=== PATIENT | female | born 1955 | race Caucasian/White ===

== ENCOUNTER → 2020-02-03 08:14 | Outpatient (CLI) | payer OTHER, MEDICARE, SELFPAY ==
--- NOTE | ~2020-02-03 | CT_ITS ---
EXAMINATION: CT chest wo con DATE: 02/03/2020 08:33 INDICATION: Lung nodule TECHNIQUE: Computed tomography (CT) of the chest was performed without intravenous contrast. The dose -length product (DLP) was 149.69 mGy-cm. Automated exposure control and iterative reconstruction tech nique were employed. COMPARISON: None FINDINGS: There are multiple (greater than 10) pulmonary nodules throughout the lungs. The largest me asures 4 mm in the right lower lobe. The remaining nodules measure 1 to 3 mm. There are also several groundglass nodules in the lungs without solid nodular component which measure up to 1.5 cm. There is no pleural effusion or pneumothorax. No pathologically enlarged thoracic lymph nodes are identified. The heart size is normal. There is moderate thoracic spondylosis. IMPRESSION: 1. Multiple pulmonary nodules measuring up to 4 mm. Without prior comparison, gear changer time cannot be assessed. Assuming these are stable and the patient has no risk factors for malignancy, no furthe r follow up is required. If there are risk factors for malignancy (i.e., history of smoking, asbesto s or radiation exposure), consider followup CT in 12 months. 2. Multiple subsolid nodules of the lungs measuring up to 1.5 cm which may be infectious or inflammat ory. Follow-up low-dose CT in three months is recommended. Reviewed, dictated and finalized at location B. IMPRESSION: 1. Multiple pulmonary nodules measuring up to 4 mm. Without prior comparison, c hange over time cannot be assessed. Assuming these are stable and the patient h as no risk factors for malignancy, no further follow up is required. If there are risk factors for malignancy (i.e., history of smoking, asbestos or radiatio n exposure), consider followup CT in 12 months. 2. Multiple subsolid nodules of the lungs measuring up to 1.5 cm which may be i nfectious or inflammatory. Follow-up low-dose CT in three months is recommended .
== END ==
PROVIDERS: PCP Family Medicine
DX: R91.1 Solitary pulmonary nodule (principal); R91.8 Other nonspecific abnormal finding of lung field
CPT/HCPCS: 71250

== ENCOUNTER 2020-02-25 08:19 | Outpatient (CLI) | payer MEDICARE, SELFPAY ==
[2020-02-25 09:18] LABS: Hematocrit 38.3 % (37.0-47.0); Hemoglobin 12.3 g/dL (12.0-15.0)
[2020-02-25 09:28] LABS: Albumin Level 4.4 g/dL (3.5-5.1); Estimated Glomerular Filt Rate > 60; Glucose 123 mg/dL (65-105)
[2020-02-25 11:39] LABS: Hemoglobin A1C 6.6 % (<5.7)
== END 2020-02-25 08:20 | disposition home or self-care (01) ==
PROVIDERS: PCP Family Medicine; Visit Provider Orthopaedic Surgery
DX: Z01.818 Encounter for other preprocedural examination (principal); M17.11 Unilateral primary osteoarthritis, right knee; I10 Essential (primary) hypertension; E11.9 Type 2 diabetes mellitus without complications
CPT/HCPCS: 36415; 82040; 82565; 82947; 83036; 85014; 85018

== ENCOUNTER 2020-03-04 13:57 | Outpatient (CLI) | payer MEDICARE, SELFPAY ==
[2020-03-04 15:41] LABS: Basophils Percent Auto 0.3 % (0.2-1.2); Eosinophils Absolute Auto 0.2 K/mm3 (0-0.3); Eosinophils Percent Auto 3.8 % (0-4.4); Immature Granulocyte Absolute 0.02 K/mm3 (0.00-0.031); Immature Granulocyte Percent A 0.3 % (0-0.5); Lymphocytes Absolute Auto 1.76 K/mm3 (0.9-3.2); Lymphocytes Percent Auto 28.2 % (18.3-44.2); Mean Corpuscular HGB Conc 32.4 g/dl (32-36); Mean Corpuscular Hemoglobin 28.8 pg (26-34); Mean Corpuscular Volume 88.9 fl (80-100); Mean Platelet Volume 9.7 fl (7.4-10.4); Monocytes Absolute Auto 0.4 K/mm3 (0.1-0.6); Monocytes Percent Auto 6.2 % (2.6-8.5); Neutrophils Absolute Auto 3.8 K/mm3 (1.3-6.7); Neutrophils Percent Auto 61.2 % (45.5-73.1); Platelet Count Result 254 k/mm3 (150-375); Red Blood Count 4.16 M/mm3 (4.2-5.4); Red Cell Distribution Width 14.1 % (11.5-14.5); White Blood Count 6.3 K/mm3 (4.5-10.0)
[2020-03-04 15:54] LABS: Anion Gap 8 mmol/L (8-16); Blood Urea Nitrogen 14 mg/dL (7-17); Calcium 9.3 mg/dL (8.4-10.2); Carbon Dioxide 26 mmol/L (22-30); Chloride 106 mmol/L (98-107); Estimated Glomerular Filt Rate > 60; Glucose 136 mg/dL (65-105); Potassium 3.8 mmol/L (3.4-5.0); Sodium 140 mmol/L (137-145)
[2020-03-04 16:04] LABS: Urine Cotinine NEGATIVE
== END 2020-03-04 13:58 | disposition home or self-care (01) ==
LOC: ANHSURGERY 14:01
PROVIDERS: Anesthesiology; PCP Family Medicine; Visit Provider Orthopaedic Surgery
DX: Z01.818 Encounter for other preprocedural examination (principal); M17.0 Bilateral primary osteoarthritis of knee; I10 Essential (primary) hypertension; Z79.899 Other long term (current) drug therapy
CPT/HCPCS: 36415; 80048; 80307; 85025; 87081

== ENCOUNTER 2020-03-27 00:56 | Outpatient (CLI) | payer MEDICARE, SELFPAY ==
[2020-03-27 18:37] LABS: SARS-CoV-2 RNA PCR Negative
== END 2020-03-27 00:57 | disposition home or self-care (01) ==
LOC: ANHCOVIDDT 00:57
PROVIDERS: PCP Family Medicine; Visit Provider Orthopaedic Surgery
DX: Z01.812 Encounter for preprocedural laboratory examination (principal); Z20.828 Contact with and (suspected) exposure to other viral communicable diseases
CPT/HCPCS: 87635; C9803; U0003

== ENCOUNTER 2020-04-01 11:23 | Observation (INO) | payer MEDICARE, SELFPAY ==
[2020-03-04 14:29] VITALS: BMI 35.5
[2020-03-04 14:31] VITALS: BP 149/85; PULSE 95; RESP 18; TEMP 37.6; O2SAT 97
--- NOTE | 2020-03-24 11:55 | PC.NURSE ---
PT CALLED TO REPORT NEW MEDS SINCE PRE-OP INTERVIEW. ANTIOBIOTIS(PO AND OINT) ADDED TO PROFILE.
[2020-03-30] VITALS (15 sets, daily range): BP systolic 96–144; BP diastolic 49–92; PULSE 68–100; RESP 11–18; TEMP 36.2–37.9; O2SAT 93–100; BMI 37.7
[2020-03-30 07:12] LABS: Glucose Point of Care 129 (65-105)
[2020-03-30] MEDS: TRANEXAMIC ACID 1,000MG/ISO100 1,000 MG/100 ML BAG 200 MG IVPB (07:12)
[2020-03-30] MEDS: ACETAMINOPHEN 500 MG TABLET 1000 MG PO (07:12)
[2020-03-30] MEDS: KETOROLAC 15 MG/ML VIAL (*BKC) IV PUSH (07:12)
[2020-03-30] MEDS: LACTATED RINGERS 1,000 ML 30 ML IV CONT ×2 (07:17→09:39)
--- NOTE | 2020-03-30 07:18 | WPDHPUPDATE1 ---
History and Physical Update Update Date/Time: 03/30/20 07:18 History and Physical has been reviewed, including an updated exam of the patient. There are NO changes in the patient's condition. Risks, benefits, and alternatives have been discussed and questions answered. Patient agrees to proceed with procedure.
[2020-03-30] MEDS: SCOPOLAMINE 1.5 MG PATCH TRANSDERM (07:23)
--- NOTE | 2020-03-30 07:32 | WPDANESPNB ---
Anes - Peripheral Nerve Block Date/Time: 03/30/20 07:32 I have discussed with the patient/family/POA the placement of a peripheral nerve block for post-operative pain management, including associated risks, benefits, complications, and side effects. Alternative methods of post-operative analgesia were detailed. Questions were solicited and answers provided to the satisfaction of the patient/family/POA. Time-Out: A pre-procedural Time-Out was completed immediately before starting the procedure and confirmed: Patient Identification, Site, Procedure, Patient Position and the Availability of Requisite Equipment. Clinical Indications: Acute post-operative pain management requested by the operative surgeon. Nerve Block Insertion Note Anes-nerve block: adductor canal right Patient position: supine Skin prep: chlorhexidine Needle: 22 gauge, stimulating, insulated echogenic needle. Needle length: 80 mm Technique: ultrasound Technique comment: mid2mg [id number] Injectate: bupivacaine 0.5% with epi 5 mcg/ml (30ml) Observations: tolerated well Complications: none Procedure start time:: 718 Procedure end time:: 725
[2020-03-30] MEDS: ceFAZolin 2 GM/D5W 50 ML 2 GM/50 ML BAG IVPB (07:39)
[2020-03-30] MEDS: GENTAMICIN BONE CEMENT REFOBACIN 1 EACH TOPICAL (08:16)
--- NOTE | 2020-03-30 09:58 | P.OP_ITS ---
Procedure Note - Detailed Date of procedure: 03/30/20 Pre-op diagnosis: OA Right Knee Post-op diagnosis: same Procedure performed: Total knee arthroplasty, right Description of procedure: Bone quality was excellent. Standard bony resections were taken. Femur was placed at 3? external rotation. The posterior cruciate ligament remained in good condition. Mild medial release was required. She had pseudolaxity medially. Implants: [employer] size 4 press-fit femur, size 4 cemented low-profile tibia, 11 mm CR polyethylene insert, 35 mm asymmetric metal backed patellar component. Anesthesia: GETA and regional (subsartorial nerve block) Surgeon: Galo Farmer MD Drains: No Complications: None Findings: OPERATIVE DETAILS: The patient was given a nerve block preoperatively, and then brought to the operating room. A general anesthetic was administered. The leg was prepped and draped in the usual sterile fashion. The limb was elevated and the tourniquet inflated to 300 mmHg during initial exposure. A longitudinal incision was created along the medial border of the patella and patellar tendon, and a minimally invasive optimized mid-vastus approach to the knee was performed. A mild medial release was taken. The knee was then flexed. The osteophytes were carefully removed. The intramedullary guide was placed in the femoral canal. The distal femoral resection was then taken with the oscillating saw. The collateral ligaments were carefully protected. The tibia was carefully exposed. The jig was applied, and the proximal tibia was resected according to preoperative plan. The knee was sebastián nced in extension. Appropriate releases were taken where needed. The anterior cruciate ligament and meniscal remnants were removed. The posterior cruciate ligament was preserved. The patella was measured. Patellar resection was carried out with the oscillating saw. The lug holes drilled. The femur was sized and rotation assessed using a combination of gap balancing, posterior referencing, and the AP axis. The 4 in 1 cutting block was used to finish the femoral cuts after equal gaps were assured. The lug holes were drilled. The osteophytes were carefully removed from the back of the knee. The knee was copiously irrigated with antibiotic solution periodically throughout the procedure. The meniscal remnants were removed. The spacer block was used to confirm equal flexion and extension gaps. Further releases were performed as needed. The tibia was sized and broached. The bony surfaces were prepared for cementing with pulsatile lavage. The real tibial component was cemented into position followed by press fitting the femoral component. Excess cement was carefully removed. The patella component was press-fit. Patellar tracking was carefully assessed. No additional releases were required. The wound was closed with #1 Vycril suture, #2 Quill suture, 0-Quill suture, and 2-0 Quill suture followed by Steri-Strips. A sterile bulky dressing was applied. Meticulous hemostasis was maintained throughout the procedure. There were no complications. The patient was extubated and brought to the recovery room in stable condition after the application of sterile dressing with Dickson bandage.
--- NOTE | 2020-03-30 10:03 | SUR.PHASEI ---
1000; PT RESTING QUIETLY. AROUSES TO VERBAL STIMULI. DENIES PAIN OR NAUSEA AT THIS TIME.
[2020-03-30 10:04] LABS: Glucose Point of Care 180 (65-105)
[2020-03-30] MEDS: ONDANSETRON INJ 4 MG/2 ML VIAL IV PUSH ×2 (10:09→23:08)
--- NOTE | 2020-03-30 10:11 | SUR.PHASEI ---
1009; PT C/O MILD NAUSEA. ZOFRAN GIVEN IV
[2020-03-30] MEDS: diphenhydrAMINE HCl INJ 50 MG/ML VIAL 25 MG IV PUSH (10:23)
--- NOTE | 2020-03-30 10:33 | SUR.PHASEI ---
SAO2 DROPS TO 88% ON ROOM AIR THEN QUICKLY INCREASES TO 94%. O2 2L NC APPLIED. RESP EVEN UNLABORED. PW,Ildefonso.
--- NOTE | 2020-03-30 11:18 | SUR.PHASEI ---
REPORT GIVEN TO FLOOR RN. PT AROUSES EASILY STATES NAUSEA IMPROVED. STATES SHE ARRIVED NAUSEATED TODAY FROM ANTIBIOTICS I TOOK THIS LAST WEEK MEETS DISCHARGE CRITERIA
--- NOTE | 2020-03-30 11:30 | PC.NURSE ---
This patient, Lia Duran, was admitted to 2 Medical Room 246-01. Patient/family oriented to hospital policies and general routines including ID bracelet, bed and alarms, visiting hours, pain management, procedures, bathroom and other care routines, personal items, smoking policy, room service/diet, and visiting hours. Valuables list has been completed. Information on how to activate the Rapid Response Team has been discussed. Patient/Family are encouraged to report perceived risks to care and to ask questions if they do not understand what they are told or what they should do.
[2020-03-30] MEDS: SODIUM CHLORIDE 0.9% IV 1,000 ML 125 ML IV CONT (11:57)
[2020-03-30 12:22] LABS: Estimated CRCL calculation 39 ml/min; Estimated Glomerular Filt Rate 56
--- NOTE | 2020-03-30 13:00 | WPDCN ---
Assessment and Plan Assessment and plan (1) Degenerative joint disease of right knee: Code(s): M17.11 - Unilateral primary osteoarthritis, right knee Status: Acute (2) Controlled type 2 diabetes mellitus without complication, without long-term current use of insulin: Onset Date: ~02/2019 Code(s): E11.9 - Type 2 diabetes mellitus without complications Status: Acute (3) Essential hypertension: Code(s): I10 - Essential (primary) hypertension Status: Acute (4) Mixed hyperlipidemia: Code(s): E78.2 - Mixed hyperlipidemia Status: Acute (5) Mild intermittent asthma in adult without complication: Code(s): J45.20 - Mild intermittent asthma, uncomplicated Status: Acute (6) Gastroesophageal reflux disease: Code(s): K21.9 - Gastro-esophageal reflux disease without esophagitis Status: Acute Additional Plan The hospitalist service has been consulted for medical management of her diabetes postoperatively. She is status postoperative day 0 , right total knee arthroplasty per Dr. Farmer. Wound care and pain control will be deferred to Dr. Farmer as well as DVT prophylaxis. Agree with early ambulation and physical therapy. Blood pressures were reviewed and they are stable thus will resume her antihypertensives. At this time we will monitor her glucose and may consider holding metformin this evening as her appetite is not great postoperatively. Initiate sliding scale insulin, Accu-Cheks, and hypoglycemic protocol. No issues with regards to her asthma and her maintenance inhalers will be resumed. The rest of her home medications will be reviewed and resumed as appropriate. Check baseline labs in a.m. Thank you for allowing us to participate in this patient's care. Please do not hesitate to contact us with any questions. We will follow with you. Supervising physician for this medical consultation is Dr. Rea Matta. HPI Data of Consult Date/Time: 03/30/20 13:00 Requesting Physician: Galo Farmer MD Primary Care Provider: Ronald Church MD Consult Narrative Narrative: Lia Duran is a very pleasant 65-year-old female with degenerative joint disease, type 2 diabetes mellitus, GERD, asthma, and hypertension whom the hospitalist service has been consulted for management of her medical conditions postoperatively. She has had pain for quite sometime in both of her knees with [id number] arthritis. Her right side seems to cause her more discomfort than the left, and unfortunately conservative outpatient therapy is not provided her with longstanding benefit and thus she elected for replacement today. Her surgery was performed under general anesthesia with a regional block. No immediate complications were documented. Estimated blood loss was not documented. Postoperatively she has had some mild nausea and is experiencing a sort of pulling pain in the posterior right knee. She has been up to the chair with physical therapy and tolerated that well. She denies fever, chills, sweats, and vomiting. No paresthesias, skin color, or temperature changes distal to the surgical site. Review of Systems Review of Systems: Narrative: Twelve systems were reviewed with pertinent positives and negatives as per HPI. She was diagnosed with type 2 diabetes in February 2019 after losing 28 lb unintentionally with generalized fatigue. At that time her hemoglobin A1c was 12.3%. She was started on metformin and her last hemoglobin A1c was 6.3%. She denies blurry vision, polydipsia, and polyuria. Her glucose typically ranges anywhere from 100 and not more than 150. No neuropathy, nephropathy, or retinopathy. No recent cold or flu symptoms but she did have COVID-19 in January 2020. She is followed by a inpatient nursing aide in [place] for her asthma and she is scheduled for repeat chest CT sometime in April for re-evaluation
[2020-03-30] MEDS: oxyCODONE HCL (*CRX) 5 MG TAB IR PO ×2 (13:49→20:58)
[2020-03-30 16:42] LABS: Glucose Point of Care 222 (65-105)
[2020-03-30] MEDS: INSULIN ASPART (*BKC) 100 UNITS/ML SUB-Q (16:45)
[2020-03-30] MEDS: metFORMIN HCL XR 500 MG TAB.SR.24H 1000 MG PO (16:46)
[2020-03-30] MEDS: DOCUSATE SODIUM 100 MG CAPSULE PO (16:46)
[2020-03-30] MEDS: FLUTICASONE PROPIONATE 0.05% NA SPR 16 GM BTL (*BKC) 1 SPRAY NASAL (16:47)
[2020-03-30] MEDS: ASPIRIN 81 MG ENTERIC TABLET PO (16:48)
[2020-03-30] MEDS: LORATADINE 10 MG TABLET PO (20:54)
[2020-03-30] MEDS: ROSUVASTATIN 10 MG TABLET PO (20:55)
[2020-03-30] MEDS: VALSARTAN 160 MG TABLET 320 MG PO (20:55)
[2020-03-30] MEDS: MELOXICAM 7.5 MG TABLET 15 MG PO (20:55)
[2020-03-30 21:03] LABS: Glucose Point of Care 166 (65-105)
[2020-03-31] VITALS (7 sets, daily range): BP systolic 109–144; BP diastolic 56–73; PULSE 82–104; RESP 16–17; TEMP 36.6–38.2; O2SAT 92–99
[2020-03-31 04:47] LABS: Basophils Percent Auto 0.3 % (0.2-1.2); Eosinophils Absolute Auto 0.1 K/mm3 (0-0.3); Eosinophils Percent Auto 0.8 % (0-4.4); Hematocrit 29.6 % (37.0-47.0); Hemoglobin 9.7 g/dL (12.0-15.0); Immature Granulocyte Absolute 0.03 K/mm3 (0.00-0.031); Immature Granulocyte Percent A 0.5 % (0-0.5); Lymphocytes Absolute Auto 0.81 K/mm3 (0.9-3.2); Lymphocytes Percent Auto 13.5 % (18.3-44.2); Mean Corpuscular HGB Conc 32.8 g/dl (32-36); Mean Corpuscular Hemoglobin 28.7 pg (26-34); Mean Corpuscular Volume 87.6 fl (80-100); Mean Platelet Volume 9.6 fl (7.4-10.4); Monocytes Absolute Auto 0.4 K/mm3 (0.1-0.6); Monocytes Percent Auto 6.2 % (2.6-8.5); Neutrophils Absolute Auto 4.7 K/mm3 (1.3-6.7); Neutrophils Percent Auto 78.7 % (45.5-73.1); Platelet Count Result 183 k/mm3 (150-375); Red Blood Count 3.38 M/mm3 (4.2-5.4); Red Cell Distribution Width 13.5 % (11.5-14.5)
[2020-03-31 05:01] LABS: Alanine Aminotransferase 17 U/L (4-35); Albumin Level 3.3 g/dL (3.5-5.1); Alkaline Phosphatase 49 U/L (38-126); Anion Gap 6 mmol/L (8-16); Aspartate Amino Transferase 26 U/L (14-36); Bilirubin,Total 0.3 mg/dL (0.2-1.3); Blood Urea Nitrogen 11 mg/dL (7-17); Calcium 8.5 mg/dL (8.4-10.2); Carbon Dioxide 23 mmol/L (22-30); Chloride 101 mmol/L (98-107); Estimated CRCL calculation 69 ml/min; Estimated Glomerular Filt Rate > 60; Glucose 142 mg/dL (65-105); Potassium 4.4 mmol/L (3.4-5.0); Sodium 130 mmol/L (137-145)
[2020-03-31] MEDS: oxyCODONE HCL (*CRX) 5 MG TAB IR PO (06:07)
[2020-03-31 07:50] LABS: Glucose Point of Care 138 (65-105)
[2020-03-31] MEDS: FLUTICASONE PROPIONATE 0.05% NA SPR 16 GM BTL (*BKC) 1 SPRAY NASAL ×2 (08:21→16:46)
[2020-03-31] MEDS: ASPIRIN 81 MG ENTERIC TABLET PO ×2 (08:22→16:47)
[2020-03-31] MEDS: amLODIPine BESYLATE 5 MG TABLET PO (08:22)
[2020-03-31] MEDS: CHOLECALCIFEROL 1,000 UNITS TABLET 2000 UNITS PO (08:22)
[2020-03-31] MEDS: metFORMIN HCL XR 500 MG TAB.SR.24H 1000 MG PO ×2 (08:22→16:47)
[2020-03-31] MEDS: DOCUSATE SODIUM 100 MG CAPSULE PO ×2 (08:22→16:47)
[2020-03-31] MEDS: CALCIUM CARBONATE (OSCAL) 500 MG TABLET PO (08:22)
[2020-03-31] MEDS: CYANOCOBALAMIN 1,000 MCG TABLET 1000 MCG PO (08:23)
[2020-03-31] MEDS: PANTOPRAZOLE 40 MG TABLET PO (08:23)
[2020-03-31] MEDS: ONDANSETRON INJ 4 MG/2 ML VIAL IV PUSH ×3 (09:42→22:06)
--- NOTE | 2020-03-31 10:46 | PM.DS ---
DS: Admitting Diagnosis Admitting Diagnosis Admitting Diagnosis: OA Right Knee DS: Summary Hospital Course Reason for hospitalization: Total knee arthroplasty. Hospital Course: Tolerated surgery well. Progressed appropriately with therapy. Status at Discharge Functional status at discharge: uses cane/walker Overall status at discharge: patient is progressing back to baseline Time Spent with Patient Time attestation: Total time spent providing and/or coordinating discharge services: Exam Const: General: no acute distress Resp: Effort & Inspection: normal respiratory effort Skin: Other: Wound healing well. Mepilex dressing intact. No hematoma or drainage. Neuro: Motor exam (neuro): 5/5 motor strength present throughout Sensory Exam: normal sensation Psych: Mental Status: mental status grossly normal Speech and movement: Normal speech and movement present DS: Data Data Completed and Pending Labs on day of discharge: Labs from last 24 hours 03/31/20 03/31/20 03/31/20 07:43 04:28 04:28 WBC 6.0 RBC 3.38 L Hgb 9.7 L Hct 29.6 L MCV 87.6 MCH 28.7 MCHC 32.8 RDW 13.5 Plt Count 183 MPV 9.6 Immature Gran % (Auto) 0.5 Neut % (Auto) 78.7 H Lymph % (Auto) 13.[address] [place] % (Auto) 6.2 Eos % (Auto) 0.8 Baso % (Auto) 0.3 Lymph # (Auto) 0.[address] [place] # (Auto) 0.4 Eos # (Auto) 0.1 Baso # (Auto) 0.0 Abs Immat Gran (auto) 0.03 Absolute Neuts (auto) 4.7 Absolute Nucleated RBC 0.0 Nucleated RBC % 0.0 Sodium 130 L Potassium 4.4 Chloride 101 Carbon Dioxide 23 Anion Gap 6 L BUN 11 Creatinine 0.90 Estim Creat Clear Calc 69 Estimated GFR > 60 Glucose 142 H POC Capillary Glucose 138 H Calcium 8.5 Total Bilirubin 0.3 Direct Bilirubin 0.0 AST 26 ALT 17 Alkaline Phosphatase 49 Total Protein 5.0 L Albumin 3.3 L 03/30/20 03/30/20 03/30/20 20:53 16:38 12:06 WBC RBC Hgb Hct MCV MCH MCHC RDW Plt Count MPV Immature Gran % (Auto) Neut % (Auto) Lymph % (Auto) [place] % (Auto) Eos % (Auto) Baso % (Auto) Lymph # (Auto) [place] # (Auto) Eos # (Auto) Baso # (Auto) Abs Immat Gran (auto) Absolute Neuts (auto) Absolute Nucleated RBC Nucleated RBC % Sodium Potassium Chloride Carbon Dioxide Anion Gap BUN Creatinine 1.00 Estim Creat Clear Calc 39 Estimated GFR 56 L Glucose POC Capillary Glucose 166 H 222 H Calcium Total Bilirubin Direct Bilirubin AST ALT Alkaline Phosphatase Total Protein Albumin Discharge Plan Discharge Patient Disposition: Home, Self-Care Discharge Instructions: Remove the Scopolamine patch that was placed behind your ear on in 72 hours or less. Removal on 04/02/2020. Wash your hands after touching. See instruction sheet. Patient Instructions: Basic Carbohydrate Counting (DC), Precautions after Total Joint Replacement Surgery (DC), Knee Replacement (DC) Stand Alone Forms: General Discharge Instructions Follow-up/Referrals: Galo Farmer MD [Physician] - Discharge Medications: New aspirin 81 mg Tablet,Delayed Release (Dr/Ec) 81 mg PO BID 14 Days Qty: 28 RF: 0 oxycodone-acetaminophen 5-325 mg tablet 1 - 2 tablet PO Q4-6H MDD 8 tablets PRN (Reason: pain) Qty: 40 RF: 0 Continued omeprazole 20 mg capsule,delayed release(DR/EC) 20 mg PO QAM RF: 0 Hold Instructions: Patient no longer taking cholecalciferol (vitamin D3) 50 mcg (2,000 unit) tablet 2,000 unit PO DAILY RF: 0 loratadine [Claritin] 10 mg tablet 10 mg PO HS RF: 0 meclizine [Medi-Meclizine] 25 mg tablet 25 mg PO TID PRN (Reason: dizziness) Qty: 20 RF: 0 Hold Instructions: Patient no longer taking rosuvastatin 10 mg tablet 10 mg PO HS RF: 0 budesonide-formoterol [Symbicort] 160-4.5 mcg/actuation HFA aerosol inhaler
[2020-03-31 11:35] LABS: Glucose Point of Care 120 (65-105)
--- NOTE | 2020-03-31 12:28 | PCOTNOTE ---
On 03/31/20, the student, Tawny Reyes, provided care and completed [facility] documentation on this patient. I have reviewed the student's documentation and agree with the findings.
--- NOTE | 2020-03-31 12:53 | PM.IMPN ---
Progress Note: A&P Assessment and Plan (1) Controlled type 2 diabetes mellitus without complication, without long-term current use of insulin: Onset Date: ~02/2019 Code(s): E11.9 - Type 2 diabetes mellitus without complications Status: Acute Assessment and Plan: Continue present medications, pt is medical stable for discharge (2) Degenerative joint disease of right knee: Code(s): M17.11 - Unilateral primary osteoarthritis, right knee Status: Acute Assessment and Plan: SP knee replacement (3) Essential hypertension: Code(s): I10 - Essential (primary) hypertension Status: Acute Assessment and Plan: Continue home regime (4) Mixed hyperlipidemia: Code(s): E78.2 - Mixed hyperlipidemia Status: Acute Assessment and Plan: Continue home regime (5) Mild intermittent asthma in adult without complication: Code(s): J45.20 - Mild intermittent asthma, uncomplicated Status: Acute Assessment and Plan: MIld and stable no concerns today (6) Gastroesophageal reflux disease: Code(s): K21.9 - Gastro-esophageal reflux disease without esophagitis Status: Acute Assessment and Plan: Dischrage with oral zofran and pepcid nausea and gerd symptoms worse when she takes pain medications Subjective Date/time seen: 03/31/20 12:53 Interval history: Consulted for medical management of her diabetes postoperatively. Pt is sp right total knee arthroplasty per Dr. Farmer. Pt is stable for medical stable for discharge, pt is ambulating with walker and does not have specific complaints, apart from mild knee pain. POD day 1. Feels some nausea later taking her pain medications. Pt has not had a bowel movement yet. Review of Systems Review of Systems: All systems reviewed & are unremarkable except as noted in HPI and below Gastrointestinal: Gastrointestinal: Reports constipation and Reports nausea Musculoskeletal: Comments: Knee pain Exam Const: General: cooperative and healthy appearing; No in distress Nutritional Appearance: overweight Orientation/consciousness: oriented to person HENMT: Head: normal to inspection Resp: Effort & Inspection: no respiratory distress Auscultation: no rhonchi and no wheezes Cardio: Rate: regular rate Rhythm: regular rhythm GI: Inspection: normal to inspection GI Palp: No abdominal tenderness, No Guarding due to palpation present (GI) and No Hepatomegaly present Auscultation: normal bowel sounds Neuro: General: oriented to person Extrem: Other: R knee with polar ice machine, good sensation, good pulses Objective Data Vital Signs Vital Signs: Vital Signs - 24 hr 03/30/20 13:15 03/30/20 17:15 03/30/20 20:49 Temperature 36.9 C 37.2 C Pulse Rate 88 68 76 Respiratory Rate 18 18 Blood Pressure 144/92 H 100/57 L Pulse Oximetry 100 96 94 03/30/20 21:08 03/31/20 01:08 03/31/20 05:08 Temperature 37.6 C 37.4 C 38.2 C H Pulse Rate 76 88 82 Respiratory Rate 16 16 16 Blood Pressure 111/61 113/58 L 139/56 L Pulse Oximetry 98 95 99 03/31/20 08:58 03/31/20 09:08 Temperature 37.2 C Pulse Rate 86 Respiratory Rate 17 Blood Pressure 118/64 Pulse Oximetry 93 98 Intake/Output Intake/Output: Intake & Output 03/28/20 03/29/20 03/30/20 03/31/20 23:59 23:59 23:59 23:59 Intake Total 1979 1040 Output Total 600 Balance 1979 440 Meds/Results Medications: Active Medications Generic Name Dose Route Start Last Admin Trade Name Freq PRN Reason Stop Dose Admin Amlodipine Besylate 5 mg 03/31/20 09:00 03/31/20 08:22 Norvasc PO 5 mg QAM AMOS Administration Aspirin 81 mg 03/30/20 17:00 03/31/20 08:22 Aspirin Ec PO 81 mg BID AMOS Administration Azelastine HCl 2 spray 03/30/20 11:23 Astelin NASAL Q12H PRN Congestion Budesonide/Formoterol Fumarate 2 puff 03/30/20 20:00 03/31/20 08:58 Symbicort 160-4.5 Mcg (*Sp) Inhale
--- NOTE | 2020-03-31 13:29 | WPDANESPN ---
Anes - Prog Note Post-Op Date/Time: 03/31/20 13:29 Cardiovascular status: normal Respiratory status: normal Airway patency: baseline Mental status: baseline Post-Op hydration status: normal Vital Signs: Last Vital Signs Temp 37.2 C 03/31/20 09:08 Pulse 86 03/31/20 09:08 Resp 17 03/31/20 09:08 BP 118/64 03/31/20 09:08 Pulse Ox 98 03/31/20 09:08 Pain Score (VAS): Patient resting in bed at time of assessment. Patient rates pain at 4-5/10 on self reported pain scale, patient states she is able to tolerate pain. PRN pain medication available. Mild nausea with relief with PRN meds. Pt voiced no additional concerns or issues at time of assessment. I/O: Intake & Output 03/30/20 03/31/20 03/31/20 23:59 07:59 15:59 Intake Total 990 700 340 Output Total 600 Balance 990 100 340 Laboratory Tests 03/31/20 04:28 03/31/20 04:28 03/30/20 03/30/20 03/31/20 16:38 20:53 04:28 WBC 6.0 RBC 3.38 L Hgb 9.7 L Hct 29.6 L MCV 87.6 MCH 28.7 MCHC 32.8 RDW 13.5 Plt Count 183 MPV 9.6 Immature Gran % (Auto) 0.5 Neut % (Auto) 78.7 H Lymph % (Auto) 13.5 L [place] % (Auto) 6.2 Eos % (Auto) 0.8 Baso % (Auto) 0.3 Lymph # (Auto) 0.81 L [place] # (Auto) 0.4 Eos # (Auto) 0.1 Baso # (Auto) 0.0 Abs Immat Gran (auto) 0.03 Absolute Neuts (auto) 4.7 Absolute Nucleated RBC 0.0 Nucleated RBC % 0.0 Sodium Potassium Chloride Carbon Dioxide Anion Gap BUN Creatinine Estim Creat Clear Calc Estimated GFR Glucose POC Capillary Glucose 222 H 166 H Calcium Total Bilirubin Direct Bilirubin AST ALT Alkaline Phosphatase Total Protein Albumin 03/31/20 03/31/20 03/31/20 04:28 07:43 11:26 WBC RBC Hgb Hct MCV MCH MCHC RDW Plt Count MPV Immature Gran % (Auto) Neut % (Auto) Lymph % (Auto) [place] % (Auto) Eos % (Auto) Baso % (Auto) Lymph # (Auto) [place] # (Auto) Eos # (Auto) Baso # (Auto) Abs Immat Gran (auto) Absolute Neuts (auto) Absolute Nucleated RBC Nucleated RBC % Sodium 130 L Potassium 4.4 Chloride 101 Carbon Dioxide 23 Anion Gap 6 L BUN 11 Creatinine 0.90 Estim Creat Clear Calc 69 Estimated GFR > 60 Glucose 142 H POC Capillary Glucose 138 H 120 H Calcium 8.5 Total Bilirubin 0.3 Direct Bilirubin 0.0 AST 26 ALT 17 Alkaline Phosphatase 49 Total Protein 5.0 L Albumin 3.3 L Post-procedural complaints: nausea (mild, relief with PRN meds. ) Patient Feedback: Patient satisfied with anesthetic care.
--- NOTE | 2020-03-31 16:14 | PM.PNORT ---
Progress Note: A&P Additional Plan Postoperative nausea after 1 pain pill, despite zofran. Postop day 1 status post total knee arthroplasty. Will try Phenergan. Possible discharge tomorrow. Subjective Subjective Date/Time Seen: 03/31/20 16:14 Interval history: Lewh-dq-wqpzeaio pain. Mobilizing well. Complains of severe nausea. Exam Narrative: Exam Narrative: Wound healing well. No drainage or swelling. Calf nontender. Neurologic status intact. Objective Data Vital Signs Vital Signs: Vital Signs - 24 hr 03/30/20 17:15 03/30/20 20:49 03/30/20 21:08 Temperature 37.2 C 37.6 C Pulse Rate 68 76 76 Respiratory Rate 18 16 Blood Pressure 100/57 L 111/61 Pulse Oximetry 96 94 98 03/31/20 01:08 03/31/20 05:08 03/31/20 08:58 Temperature 37.4 C 38.2 C H Pulse Rate 88 82 Respiratory Rate 16 16 Blood Pressure 113/58 L 139/56 L Pulse Oximetry 95 99 93 03/31/20 09:08 03/31/20 14:00 Temperature 37.2 C 36.6 C Pulse Rate 86 85 Respiratory Rate 17 16 Blood Pressure 118/64 109/57 L Pulse Oximetry 98 99 Intake/Output Intake/Output: Intake & Output 03/28/20 03/29/20 03/30/20 03/31/20 23:59 23:59 23:59 23:59 Intake Total 1979 1160 Output Total 600 Balance 1980 560 Meds/Results Medications: Active Medications Generic Name Dose Route Start Last Admin Trade Name Freq PRN Reason Stop Dose Admin Amlodipine Besylate 5 mg 03/31/20 09:00 03/31/20 08:22 Norvasc PO 5 mg QAM AMOS Administration Aspirin 81 mg 03/30/20 17:00 03/31/20 08:22 Aspirin Ec PO 81 mg BID AMOS Administration Azelastine HCl 2 spray 03/30/20 11:23 Astelin NASAL Q12H PRN Congestion Budesonide/Formoterol Fumarate 2 puff 03/30/20 20:00 03/31/20 08:58 Symbicort 160-4.5 Mcg (*Sp) Inhaler INHALATION 2 puff Q12HRT AMOS Administration Calcium Carbonate 500 mg 03/31/20 09:00 03/31/20 08:22 Oscal 500 Mg PO 500 mg QAM AMOS Administration Cyanocobalamin 1,000 mcg 03/31/20 09:00 03/31/20 08:23 Vitamin B-12 Tab PO 1,000 mcg DAILY AMOS Administration Dextrose 12.5 gm 03/30/20 15:35 Dextrose 50% Syringe IV PUSH PRN PRN Hypoglycemia Protocol Diazepam 5 mg 03/30/20 11:23 Valium Po PO Q8H PRN Spasms Diphenhydramine HCl 25 mg 03/30/20 11:23 Benadryl Inj IV PUSH Q6H PRN Itching Docusate Sodium 100 mg 03/30/20 17:00 03/31/20 08:22 Colace Capsule PO 100 mg BID AMOS Administration Fluticasone Propionate 1 spray 03/30/20 17:00 03/31/20 08:21 Flonase 0.05% Nasal [place] NASAL 1 spray BID AMOS Administration Glucagon 1 mg 03/30/20 15:35 Glucagon For Inj IM PRN PRN Hypoglycemia Protocol Glucose 15 gm 03/30/20 15:35 Glutose 15 PO PRN PRN Hypoglycemia Protocol Dextrose 1,000 mls @ 100 mls/hr 03/30/20 15:35 Dextrose 5% 1,000 Ml IVPB PRN PRN Hypoglycemia Protocol Insulin Aspart 2 - 5 units 03/30/20 17:00 03/31/20 11:36 Novolog SUB-Q Not Given TIDWM [facility] Protocol Loratadine 10 mg 03/30/20 21:00 03/30/20 20:54 Claritin PO 10 mg HS AMOS Administration Meclizine HCl 25 mg 03/30/20 11:23 Antivert PO TID PRN dizziness Meloxicam 15 mg 03/30/20 21:00 03/30/20 20:55 Mobic PO 15 mg HS AMOS Administration Meperidine HCl 100 mg 03/30/20 11:23 Demerol IM Q3H PRN Breakthrough pain rated 7-10 Metformin HCl 1,000 mg 03/30/20 17:00 03/31/20 08:22 Glucophage Xr PO 1,000 mg BID AMOS Administration Naloxone HCl 0.1 mg 03/30/20 11:23 Narcan IV PUSH Q2M PRN Opiate Reversal Oxycodone HCl 5 mg 03/30/20 11:23 03/31/20 06:07 Roxicodone Ir Tablet PO 5 mg Q4H PRN Administration Pain Rated 4-6 Oxycodone HCl 10 mg 03/30/20 11:23 Roxicodone Ir Tablet PO Q4H PRN Pain Rated 7-10 Pantoprazole Sodium 40 mg 03/31/20 09:00 03/31
[2020-03-31 16:41] LABS: Glucose Point of Care 148 (65-105)
[2020-03-31 22:05] LABS: Glucose Point of Care 168 (65-105)
[2020-03-31] MEDS: MELOXICAM 7.5 MG TABLET 15 MG PO (23:25)
[2020-03-31] MEDS: LORATADINE 10 MG TABLET PO (23:26)
[2020-03-31] MEDS: ROSUVASTATIN 10 MG TABLET PO (23:26)
[2020-03-31] MEDS: VALSARTAN 160 MG TABLET 320 MG PO (23:26)
--- NOTE | ~2020-04-01 | XR_ITS ---
EXAMINATION: XR knee RT 2V DATE: 03/30/2020 10:11 CDT INDICATION: Right total knee arthroplasty TECHNIQUE: 2 views right knee FINDINGS: There is a right total knee arthroplasty in expected position. Subcutaneous gas with fluid and air in the joint are consistent with recent surgery. No evidence of periprosthetic fracture. IMPRESSION: 1. Recent right total knee arthroplasty. Reviewed, dictated and finalized at location A.
[2020-04-01 02:00] VITALS: BP 149/84; PULSE 104; RESP 16; TEMP 37.4; O2SAT 95
[2020-04-01 05:55] VITALS: BP 126/69; PULSE 95; RESP 16; TEMP 37.1; O2SAT 96
[2020-04-01 07:59] LABS: Glucose Point of Care 137 (65-105)
[2020-04-01] MEDS: ASPIRIN 81 MG ENTERIC TABLET PO (08:26)
[2020-04-01] MEDS: FLUTICASONE PROPIONATE 0.05% NA SPR 16 GM BTL (*BKC) 1 SPRAY NASAL (08:26)
[2020-04-01] MEDS: CYANOCOBALAMIN 1,000 MCG TABLET 1000 MCG PO (08:26)
[2020-04-01] MEDS: metFORMIN HCL XR 500 MG TAB.SR.24H 1000 MG PO (08:27)
[2020-04-01] MEDS: CHOLECALCIFEROL 1,000 UNITS TABLET 2000 UNITS PO (08:27)
[2020-04-01] MEDS: amLODIPine BESYLATE 5 MG TABLET PO (08:27)
[2020-04-01] MEDS: DOCUSATE SODIUM 100 MG CAPSULE PO (08:27)
[2020-04-01] MEDS: CALCIUM CARBONATE (OSCAL) 500 MG TABLET PO (08:27)
[2020-04-01] MEDS: PANTOPRAZOLE 40 MG TABLET PO (08:27)
[2020-04-01 08:32] VITALS: O2SAT 93
[2020-04-01] MEDS: oxyCODONE HCL (*CRX) 5 MG TAB IR PO (08:36)
[2020-04-01 09:47] VITALS: BP 149/72; PULSE 101; RESP 18; TEMP 37; O2SAT 95
[2020-04-01 11:26] LABS: Glucose Point of Care 158 (65-105)
--- NOTE | 2020-04-01 11:56 | PM.IMPN ---
Progress Note: A&P Assessment and Plan (1) Controlled type 2 diabetes mellitus without complication, without long-term current use of insulin: Onset Date: ~02/2019 Code(s): E11.9 - Type 2 diabetes mellitus without complications Status: Acute Assessment and Plan: Continue present medications, pt is medical stable for discharge (2) Degenerative joint disease of right knee: Code(s): M17.11 - Unilateral primary osteoarthritis, right knee Status: Acute Assessment and Plan: SP R knee replacement (3) Essential hypertension: Code(s): I10 - Essential (primary) hypertension Status: Acute Assessment and Plan: Continue home regime (4) Mixed hyperlipidemia: Code(s): E78.2 - Mixed hyperlipidemia Status: Acute Assessment and Plan: Continue home regime (5) Mild intermittent asthma in adult without complication: Code(s): J45.20 - Mild intermittent asthma, uncomplicated Status: Acute Assessment and Plan: MIld and stable no concerns today (6) Gastroesophageal reflux disease: Code(s): K21.9 - Gastro-esophageal reflux disease without esophagitis Status: Resolved Assessment and Plan: GERD symptoms better today. Some symptoms when she takes pain medications. Adviced bland foods. Subjective Date/time seen: 04/01/20 11:56 Interval history: Consulted for medical management of her diabetes postoperatively. Pt is sp right total knee arthroplasty per Dr. Farmer. Pt is stable for medical stable for discharge, pt is ambulating with walker and does not have specific complaints, apart from mild knee pain. POD day 2. Pt felt some nausea later taking her pain medications yesterday so was not discharged. Pt feels much better today stable for discharge. Review of Systems Review of Systems: All systems reviewed & are unremarkable except as noted in HPI and below Musculoskeletal: Comments: Knee pain Exam Const: General: cooperative and healthy appearing; No in distress Nutritional Appearance: overweight Orientation/consciousness: oriented to person HENMT: Head: normal to inspection Resp: Effort & Inspection: no respiratory distress Auscultation: no rhonchi and no wheezes Cardio: Rate: regular rate Rhythm: regular rhythm GI: Inspection: normal to inspection Auscultation: normal bowel sounds Neuro: General: oriented to person Extrem: Other: R knee with polar ice machine, good sensation, good pulses Objective Data Vital Signs Vital Signs: Vital Signs - 24 hr 03/31/20 14:00 03/31/20 20:18 03/31/20 22:00 Temperature 36.6 C 37.3 C Pulse Rate 85 104 H Respiratory Rate 16 16 Blood Pressure 109/57 L 144/73 H Pulse Oximetry 99 92 96 04/01/20 02:00 04/01/20 05:55 04/01/20 08:32 Temperature 37.4 C 37.1 C Pulse Rate 104 H 95 Respiratory Rate 16 16 Blood Pressure 149/84 H 126/69 Pulse Oximetry 95 96 93 04/01/20 09:47 Temperature 37.0 C Pulse Rate 101 H Respiratory Rate 18 Blood Pressure 149/72 H Pulse Oximetry 95 Intake/Output Intake/Output: Intake & Output 03/29/20 03/30/20 03/31/20 04/01/20 23:59 23:59 23:59 23:59 Intake Total 1979 1280 440 Output Total 600 Balance 1979 680 440 Meds/Results Medications: Active Medications Generic Name Dose Route Start Last Admin Trade Name Freq PRN Reason Stop Dose Admin Amlodipine Besylate 5 mg 03/31/20 09:00 04/01/20 08:27 Norvasc PO 5 mg QAM AMOS Administration Aspirin 81 mg 03/30/20 17:00 04/01/20 08:26 Aspirin Ec PO 81 mg BID AMOS Administration Azelastine HCl 2 spray 03/30/20 11:23 Astelin NASAL Q12H PRN Congestion Budesonide/Formoterol Fumarate 2 puff 03/30/20 20:00 04/01/20 08:31 Symbicort 160-4.5 Mcg (*Sp) Inhaler INHALATION 2 puff Q12HRT AMOS Administration Calcium Carbonate 500 mg 03/31/20 09:00 04/01/20 08:27 Oscal 500 Mg PO 500 mg QAM COUNT INCLUDES THE [facility] Administra
== END 2020-04-01 12:03 | disposition home or self-care (01) ==
LOC: ANHSURGERY 11:57 → ANH2MED 11:57
PROVIDERS: Admitting Provider Orthopaedic Surgery; PCP Family Medicine; Visit Provider Orthopaedic Surgery
PROC: (CPT 27447; principal; 2020-03-30 07:30)
DX: M17.11 Unilateral primary osteoarthritis, right knee (principal); G89.18 Other acute postprocedural pain; R11.0 Nausea; I10 Essential (primary) hypertension; E11.9 Type 2 diabetes mellitus without complications; E78.2 Mixed hyperlipidemia; J45.20 Mild intermittent asthma, uncomplicated; K21.9 Gastro-esophageal reflux disease without esophagitis; I34.1 Nonrheumatic mitral (valve) prolapse; Z23 Encounter for immunization; Z79.84 Long term (current) use of oral hypoglycemic drugs
CPT/HCPCS: 27447; 64447; 36415; 73560; 80048; 80076; 82565; 85025; 86850; 86900; 86901; 90471; 90686; 94640; 97110; 97116; 97161; 97165; 97530; 97535; 99199; A9270; C1713; C1776; G0008; J0131; J0171; J0690; J1100; J1170; J1200; J1815; J1885; J2250; J2270; J2370; J2405; J2704; J2795; J3370; J7030; J7120

== ENCOUNTER 2020-09-09 10:01 | Outpatient (CLI) | payer MEDICARE, SELFPAY | END 2020-09-09 10:02 | disposition home or self-care (01) | PROVIDERS: PCP Family Medicine | DX: Z23 Encounter for immunization (principal) | CPT/HCPCS: 0001A; 91300 ==

== ENCOUNTER 2020-09-30 09:59 | Outpatient (CLI) | payer MEDICARE, SELFPAY | END 2020-09-30 10:00 | disposition home or self-care (01) | LOC: ANHCOVIDVC 09:59 | PROVIDERS: PCP Family Medicine | DX: Z23 Encounter for immunization (principal) | CPT/HCPCS: 0002A; 91300 ==

== ENCOUNTER 2020-12-22 08:12 | Outpatient (CLI) | payer MEDICARE, SELFPAY ==
--- NOTE | ~2020-12-22 | CT_ITS ---
EXAMINATION: CT LE LT wo con DATE: 12/22/2020 10:00 INDICATION: Primary osteoarthritis of the left knee. TECHNIQUE: High resolution computed tomography (CT) of the lower limb from the hip through the foot w as performed without intravenous contrast. Automated exposure control and iterative reconstruction te chnique were employed. The dose-length product was 1745.82 mGy-cm. COMPARISON: Left knee radiographs dated 11/22/2020 FINDINGS: Bone alignment is normal. No fracture. Mild osteoarthritis at the left hip with marginal osteophytes along the acetabulum. No right hip joint effusion. Visualized portion of the pelvis is unremarkable. No left pelvic or inguinal lymphadenopathy. Tricompartmental osteoarthritis at the right knee. Assessment of joint space narrowing is limited on nonweightbearing imaging is of at least moderate severity in the medial compartment there is subartic ular eburnation and cystic change along both the weightbearing medial femoral condyle and anterior an d medial aspect of the medial tibial plateau. Mild joint space narrowing in the patellofemoral compar tment with minimal additional subarticular cystic change along the patellar apical ridge. Small to mo derate size marginal osteophytes in all 3 compartments of the knee. Small left knee joint effusion. Mild to moderate osteoarthritis in the tibiotalar joint with subarticular cystic change along the med ial rim of the talar dome and along both sides of the articulation between the talus and the lateral malleolus. No left ankle joint effusion. Moderate osteoarthritis at the subtalar joint with additiona l subarticular cystic change at both sides of the joint space. Mild to moderate osteoarthritis at the calcaneocuboid joint with subarticular cystic change at the medial side of the articular surface of the cuboid. Mild to moderate osteoarthritis at the first metatarsophalangeal joint with subarticular cystic change along the head of the first metatarsal. Additional mild osteoarthritis of multiple juanito tional joints in the mid and forefoot. Peroneal tenosynovitis with fusiform thickening of the peroneu s longus and brevis tendons consistent with likely at least moderate tendinopathy. More detailed asse ssment for tear/partial tears is limited on CT imaging. IMPRESSION: 1. Polyarticular osteoarthritis throughout the left lower limb as detailed above. Reviewed, dictated and finalized at location A. IMPRESSION: 1. Polyarticular osteoarthritis throughout the left lower limb as detailed thuan ly
[2020-12-22 08:50] LABS: Hemoglobin 12.1 g/dL (12.0-15.0)
--- NOTE | 2020-12-22 08:53 | ECG_ITS ---
Measurements Intervals [place] Rate: 79 P: 67 [place]: 176 QRS: -7 QRSD: 102 T: 52 QT: 369 QTc: 423 Interpretive Statements SINUS RHYTHM BASELINE ARTIFACT- AVR, AVL, AVF NORMAL ECG Electronically Signed On 12-22-2020 9:24:49 CDT by Robles Graham D.O.
[2020-12-22 09:00] LABS: Albumin Level 4.1 g/dL (3.5-5.1); Estimated Glomerular Filt Rate > 60; Glucose 127 mg/dL (65-105)
[2020-12-22 09:29] LABS: Hemoglobin A1C 6.5 % (<5.7)
== END 2020-12-22 08:13 | disposition home or self-care (01) ==
PROVIDERS: PCP Family Medicine; Visit Provider Orthopaedic Surgery
DX: M17.12 Unilateral primary osteoarthritis, left knee (principal); Z01.818 Encounter for other preprocedural examination
CPT/HCPCS: 36415; 73700; 82040; 82565; 82947; 83036; 85014; 85018; 93005

== ENCOUNTER 2021-01-26 11:52 | Outpatient (CLI) | payer MEDICARE, SELFPAY ==
[2021-01-26 14:02] LABS: Urine Cotinine NEGATIVE
[2021-01-26 14:04] LABS: Basophils Percent Auto 0.5 % (0.2-1.2); Eosinophils Absolute Auto 0.2 K/mm3 (0-0.3); Eosinophils Percent Auto 3.5 % (0-4.4); Hemoglobin 11.5 g/dL (12.0-15.0); Immature Granulocyte Absolute 0.02 K/mm3 (0.00-0.031); Immature Granulocyte Percent A 0.3 % (0-0.5); Lymphocytes Percent Auto 21.9 % (18.3-44.2); Mean Corpuscular HGB Conc 31.9 g/dl (32-36); Mean Corpuscular Hemoglobin 28.4 pg (26-34); Mean Corpuscular Volume 88.9 fl (80-100); Monocytes Absolute Auto 0.5 K/mm3 (0.1-0.6); Monocytes Percent Auto 9.1 % (2.6-8.5); Neutrophils Absolute Auto 3.8 K/mm3 (1.3-6.7); Neutrophils Percent Auto 64.7 % (45.5-73.1); Platelet Count Result 247 k/mm3 (150-375); Red Blood Count 4.05 M/mm3 (4.2-5.4); Red Cell Distribution Width 13.4 % (11.5-14.5); White Blood Count 5.9 K/mm3 (4.5-10.0)
[2021-01-26 14:07] LABS: Anion Gap 10 mmol/L (8-16); Blood Urea Nitrogen 13 mg/dL (7-17); Calcium 9.2 mg/dL (8.4-10.2); Carbon Dioxide 24 mmol/L (22-30); Chloride 105 mmol/L (98-107); Estimated Glomerular Filt Rate > 60; Glucose 131 mg/dL (65-110); Potassium 4.2 mmol/L (3.4-5.0); Sodium 139 mmol/L (137-145)
== END 2021-01-26 11:53 | disposition home or self-care (01) ==
LOC: ANHSURGERY 11:55
PROVIDERS: Anesthesiology; PCP Family Medicine; Visit Provider Orthopaedic Surgery
DX: M17.12 Unilateral primary osteoarthritis, left knee (principal); E11.9 Type 2 diabetes mellitus without complications; Z01.818 Encounter for other preprocedural examination
CPT/HCPCS: 80048; 80307; 85025; 87081

== ENCOUNTER 2021-02-11 01:44 | Day surgery (SDC) | payer MEDICARE, SELFPAY ==
[2021-01-26 12:27] VITALS: BP 146/79; PULSE 96; RESP 18; TEMP 37.6; O2SAT 97; BMI 36.0
[2021-02-11] VITALS (14 sets, daily range): BP systolic 116–150; BP diastolic 57–85; PULSE 84–103; RESP 12–18; TEMP 36.2–36.8; O2SAT 94–100
--- NOTE | ~2021-02-11 | XR_ITS ---
XR knee LT 2V DATE: 02/11/2021 11:05 INDICATION: Postoperative examination following left total knee arthroplasty TECHNIQUE: Portable AP and crosstable lateral views COMPARISON: 11/12/2020 left knee FINDINGS: There is postoperative change from left total knee arthroplasty with patellar resurfacing, with normal alignment of the prosthetic components. There is expected subcutaneous and intra-articular gas postoperatively. No fracture, dislocation, periosteal reaction or bone destruction. IMPRESSION: Status post left total knee arthroplasty with patellar resurfacing Reviewed, dictated and finalized at location B.
--- NOTE | 2021-02-11 06:57 | WPDANESEPPF ---
Anes - Initial Pre Proc Eval Procedure: Operation Date: 02/11/21 08:00 Proposed Procedures p Left Custom Total Knee Replacement - Galo Farmer MD Date/Time: 02/11/21 06:57 Surgeon: Galo Farmer MD Pre Op Diagnosis: primary OA left knee Patient Data Age: 66 Gender: F Height: 1.68 m Weight: 98.1 kg Last Vital Signs Temp 37.6 C H 01/26/21 12:27 Pulse 96 01/26/21 12:27 Resp 18 01/26/21 12:27 BP 146/79 H 01/26/21 12:27 Pulse Ox 97 01/26/21 12:27 Allergies Allergy/AdvReac Type Severity Reaction Status Date / Time BEE STINGS/WASP STINGS Allergy Intermediate TROUBLE Uncoded 01/26/21 12:04 BREATHING Home Medications Medication Instructions Recorded Confirmed Type calcium carbonate 600 mg calcium 600 mg PO QAM 06/11/19 01/26/21 History (1,500 mg) tablet budesonide-formoterol HFA 160 2 puff INHALATION Q12H 09/01/19 01/26/21 History mcg-4.5 mcg/actuation aerosol inhaler cholecalciferol (vitamin D3) 50 2,000 unit PO DAILY 09/01/19 01/26/21 History mcg (2,000 unit) tablet loratadine 10 mg tablet 10 mg PO HS 09/01/19 01/26/21 History meclizine 25 mg tablet 25 mg PO TID PRN #20 tablet 09/01/19 01/26/21 Rx omeprazole 20 mg capsule,delayed 20 mg PO QAM cap 09/01/19 01/26/21 History release rosuvastatin 10 mg tablet 10 mg PO HS 09/01/19 01/26/21 History blood-glucose meter #1 each 01/29/20 01/26/21 Rx lancing device with lancets kit #1 each 01/29/20 01/26/21 Rx fluticasone propionate 50 1 spray NASAL BID #19.8 ml 03/02/20 01/26/21 Rx mcg/actuation nasal spray,suspension biotin 5,000 mcg PO DAILY 03/04/20 01/26/21 History cyanocobalamin (vitamin B-12) 1,000 mcg PO DAILY 03/04/20 01/26/21 History [Vitamin B-12] metformin 500 mg tablet,extended 1,000 mg PO BID #120 tablet 03/09/20 01/26/21 Rx release 24 hr amlodipine 5 mg tablet 5 mg PO QAM #30 tablet 04/07/20 01/26/21 Rx meloxicam 15 mg tablet 15 mg PO HS #30 tablet 05/06/20 01/26/21 Rx valsartan 320 mg tablet 320 mg PO HS #90 tablet 10/19/20 01/26/21 Rx blood sugar diagnostic #100 ea 12/07/20 01/26/21 Rx acetaminophen [Tylenol Extra 1,000 mg PO HS PRN 01/26/21 01/26/21 History Strength] albuterol 90 mcg INHALATION Q4-6H PRN 01/26/21 01/26/21 History aspirin 81 mg PO DAILY 01/26/21 01/26/21 History ljmpdgh-juafwniqydcse-oehvizdn 2 tablet PO Q4-6H PRN 01/26/21 01/26/21 History [Excedrin Migraine] docusate sodium 100 mg PO BID 01/26/21 01/26/21 History duloxetine 60 mg PO HS 01/26/21 01/26/21 History Patient hx anesthesia problems: none Family hx anesthesia problems: none PMFSH Past Medical History Medical History Bronchitis Controlled type 2 diabetes mellitus without complication, without long-term current use of insulin (~02/2019) Most recent hemoglobin A1c was reportedly 6.3%. COVID-19 (~01/2020) Degenerative joint disease Depression Essential hypertension Hypertension Insomnia Mild intermittent asthma in adult without complication Mitral valve prolapse, aortic enlargement, skin and skeletal findings (MASS) syndrome Followed by a composition teacher in [place]. Aorta measured 4.25 cm on imaging in June 2019. Mixed hyperlipidemia Osteoarthritis of both knees Urinary tract infection Surgical History Surgical History History of arthroplasty of right knee (~03/30/20) History of D&C (~1981) History of repair of patent ductus arteriosus (~1958) Family History Family History Father Diabetes mellitus Hypertension Patient's father is in good health Sibling Diabetes mellitus Patient's brother is in good health Family history of colonic diverticulitis Grandparent Family history of cardiovascular disease Acute myocardial infarction Cerebrovascular accident Family history of Parkinson's disease Carcinoma of colon Fa
--- NOTE | 2021-02-11 07:05 | WPDANESPNB ---
Anes - Peripheral Nerve Block Date/Time: 02/11/21 07:05 I have discussed with the patient/family/POA the placement of a peripheral nerve block for post-operative pain management, including associated risks, benefits, complications, and side effects. Alternative methods of post-operative analgesia were detailed. Questions were solicited and answers provided to the satisfaction of the patient/family/POA. Time-Out: A pre-procedural Time-Out was completed immediately before starting the procedure and confirmed: Patient Identification, Site, Procedure, Patient Position and the Availability of Requisite Equipment. Clinical Indications: Acute post-operative pain management requested by the operative surgeon. Nerve Block Insertion Note Anes-nerve block: adductor canal left Patient position: supine Skin prep: chlorhexidine Needle: 22 gauge, stimulating, insulated echogenic needle. Needle length: 80 mm Technique: ultrasound Technique comment: in plane Injectate: bupivacaine 0.5% with epi 5 mcg/ml (30cc) Observations: tolerated well Complications: none Procedure start time:: 740 Procedure end time:: 745
--- NOTE | 2021-02-11 07:26 | WPDHPUPDATE1 ---
History and Physical Update Update Date/Time: 02/11/21 07:26 History and Physical has been reviewed, including an updated exam of the patient. There are NO changes in the patient's condition. Risks, benefits, and alternatives have been discussed and questions answered. Patient agrees to proceed with procedure.
[2021-02-11] MEDS: ACETAMINOPHEN 500 MG TABLET 1000 MG PO (07:27)
[2021-02-11] MEDS: LACTATED RINGERS 1,000 ML 30 ML IV CONT ×2 (07:28→10:54)
[2021-02-11] MEDS: TRANEXAMIC ACID 1,000MG/ISO100 1,000 MG/100 ML BAG 200 MG IVPB (07:28)
[2021-02-11 07:32] LABS: Glucose Point of Care 119 mg/dl (65-105)
[2021-02-11] MEDS: ceFAZolin 2 GM/D5W 50 ML 2 GM/50 ML BAG IVPB ×2 (08:03→16:39)
[2021-02-11] MEDS: GENTAMICIN BONE CEMENT REFOBACIN 1 EACH TOPICAL (08:52)
[2021-02-11 11:04] LABS: Glucose Point of Care 180 mg/dl (65-105)
--- NOTE | 2021-02-11 11:12 | P.OP_ITS ---
Procedure Note - Detailed Date of Procedure 02/11/21 Pre-op Diagnosis Osteoarthritis, left knee Post-op Diagnosis same Procedure Performed Total knee arthroplasty, left. Surgeon Galo Farmer MD Run Boat Operator Bridget Bautista PA-C Anesthesia general and regional (Subsartorial block.) Description of Procedure Physician paraprofessional education assistant, Bridget Bautista PA-C, required for surgery; including patient positioning, draping, tissue retraction, maintaining instrument position, cement removal, wound closure, and dressing placement. Preoperative antibiotics were given. The limb was prepped and draped in the usual sterile fashion with a well-padded tourniquet high on the thigh. The limb was exsanguinated and the tourniquet inflated to 300 mmHg. A longitudinal incision was created just medial to the patella. A trivector approach to the knee was performed. Arthrotomy was taken down through the joint capsule. No significant releases were initially taken. The femur was exposed and the F1 jig was applied. The coring tool was used to remove the cartilage for the F2 jig to sit flush with the bone. The jig was pinned and the distal cut carefully taken. Caliper measurements confirmed appropriate bony resections according to the preoperative templated plan. The F4 cutting jig for the femur was applied, at the standard rotation. The AP and anterior chamfer cuts were taken. The F5 jig was applied and the posterior chamfer cuts were taken. The tibia was prepared using the T1 jig, after removing cartilage for the jig contact points. Proper alignment was checked with the alignment fco. The tibia was cut using the T1u guide. Gap balancing was performed. Gap measurements were taken and the knee was trialed. Excellent alignment and soft tissue balancing was confirmed. The posterior cruciate ligament was recessed along the proximal tibia. The patella was cut for resurfacing. Three lug holes were drilled. Meniscal remnants were removed. The trial components were assembled. Excellent range of motion and proper soft tissue balancing were confirmed throughout the full range of motion. Patellar tracking was excellent. The knee was copiously irrigated periodically throughout the procedure. The real implants were cemented into position. Excess cement was carefully removed. The wound was closed in layers with interrupted #1 Vicryl suture, 2-0 strata fix suture, 0 strata fix suture, 2-0 strata fix suture. Steri-Strips placed on the skin with the knee flexed. Sterile bulky dressing applied. The patient was brought to the recovery room in stable condition. There were no complications. Implants Conform[employer] Custom total knee arthroplasty. Cemented. Cruciate retaining. 6A insert. 32 mm round patella. Estimated Blood Loss -50.0 Drains No Complications No immediate complications Condition stable Disposition PACU
[2021-02-11] MEDS: fentaNYL CITRATE INJ (*CRX) 100 MCG/2 ML VIAL 25 MCG IV PUSH (11:30)
[2021-02-11] MEDS: oxyCODONE HCL (*CRX) 5 MG TAB IR PO ×2 (15:30→20:40)
[2021-02-11 18:02] LABS: Glucose Point of Care 140 mg/dl (65-105)
[2021-02-11] MEDS: DOCUSATE SODIUM 100 MG CAPSULE PO (18:05)
[2021-02-11] MEDS: ASPIRIN 81 MG ENTERIC TABLET PO (18:05)
[2021-02-11] MEDS: FLUTICASONE PROPIONATE 0.05% NA SPR 16 GM BTL (*BKC) 1 SPRAY NASAL (18:06)
[2021-02-11] MEDS: metFORMIN HCL XR 500 MG TAB.SR.24H 1000 MG PO (18:07)
--- NOTE | 2021-02-11 19:26 | ADMGEN ---
This patient, Lia Duran, was admitted to Medical Room 247-. Patient/family oriented to hospital policies and general routines including ID bracelet, bed and alarms, visiting hours, pain management, procedures, bathroom and other care routines, personal items, smoking policy, room service/diet, and visiting hours. Information on how to activate the Rapid Response Team has been discussed. Patient/Family are encouraged to report perceived risks to care and to ask questions if they do not understand what they are told or what they should do.
[2021-02-11 20:28] LABS: Glucose Point of Care 135 mg/dl (65-105)
[2021-02-11] MEDS: ROSUVASTATIN 10 MG TABLET PO (20:41)
[2021-02-11] MEDS: VALSARTAN 160 MG TABLET 320 MG PO (20:41)
[2021-02-11] MEDS: MELOXICAM 7.5 MG TABLET 15 MG PO (20:42)
[2021-02-11] MEDS: LORATADINE 10 MG TABLET PO (20:42)
[2021-02-11] MEDS: DULoxetine HCL 60 MG CAPSULE.DR PO (20:43)
[2021-02-12] MEDS: ceFAZolin 2 GM/D5W 50 ML 2 GM/50 ML BAG IVPB ×2 (00:10→08:46)
[2021-02-12 02:21] VITALS: BP 120/62; PULSE 90; RESP 16; TEMP 36.8; O2SAT 95
[2021-02-12 05:41] VITALS: BP 120/61; PULSE 95; RESP 16; TEMP 36.8; O2SAT 97
[2021-02-12 06:15] LABS: Basophils Percent Auto 0.1 % (0.2-1.2); Eosinophils Percent Auto 0.4 % (0-4.4); Hematocrit 31.2 % (37.0-47.0); Hemoglobin 9.9 g/dL (12.0-15.0); Immature Granulocyte Absolute 0.03 K/mm3 (0.00-0.031); Immature Granulocyte Percent A 0.4 % (0-0.5); Lymphocytes Absolute Auto 0.83 K/mm3 (0.9-3.2); Lymphocytes Percent Auto 12.4 % (18.3-44.2); Mean Corpuscular HGB Conc 31.7 g/dl (32-36); Mean Corpuscular Volume 88.4 fl (80-100); Monocytes Absolute Auto 0.7 K/mm3 (0.1-0.6); Monocytes Percent Auto 9.8 % (2.6-8.5); Neutrophils Absolute Auto 5.2 K/mm3 (1.3-6.7); Neutrophils Percent Auto 76.9 % (45.5-73.1); Platelet Count Result 208 k/mm3 (150-375); Red Blood Count 3.53 M/mm3 (4.2-5.4); Red Cell Distribution Width 13.4 % (11.5-14.5); White Blood Count 6.7 K/mm3 (4.5-10.0)
[2021-02-12 06:32] LABS: Anion Gap 7 mmol/L (8-16); Blood Urea Nitrogen 14 mg/dL (7-17); Calcium 8.8 mg/dL (8.4-10.2); Carbon Dioxide 25 mmol/L (22-30); Chloride 98 mmol/L (98-107); Estimated CRCL calculation 71 ml/min; Estimated Glomerular Filt Rate > 60; Glucose 126 mg/dL (65-110); Potassium 3.9 mmol/L (3.4-5.0); Sodium 130 mmol/L (137-145)
[2021-02-12 07:24] LABS: Glucose Point of Care 190 mg/dl (65-105)
[2021-02-12] MEDS: FLUTICASONE PROPIONATE 0.05% NA SPR 16 GM BTL (*BKC) 1 SPRAY NASAL (08:47)
[2021-02-12] MEDS: CHOLECALCIFEROL 1,000 UNITS TABLET 2000 UNITS PO (08:47)
[2021-02-12] MEDS: CYANOCOBALAMIN 1,000 MCG TABLET 1000 MCG PO (08:47)
[2021-02-12] MEDS: DOCUSATE SODIUM 100 MG CAPSULE PO (08:48)
[2021-02-12] MEDS: metFORMIN HCL XR 500 MG TAB.SR.24H 1000 MG PO (08:48)
[2021-02-12] MEDS: PANTOPRAZOLE 40 MG TABLET PO (08:48)
[2021-02-12] MEDS: ASPIRIN 81 MG ENTERIC TABLET PO (08:48)
[2021-02-12] MEDS: CALCIUM CARBONATE (OSCAL) 500 MG TABLET PO (08:49)
[2021-02-12] MEDS: amLODIPine BESYLATE 5 MG TABLET PO (08:49)
[2021-02-12] MEDS: oxyCODONE HCL (*CRX) 5 MG TAB IR PO (08:58)
--- NOTE | 2021-02-12 09:11 | PM.DS ---
DS: Admitting Diagnosis Admitting Diagnosis OA knee Left DS: Discharge Diagnosis Discharge Diagnosis (1) Status post total left knee replacement: Code(s): Z96.652 - Presence of left artificial knee joint Status: Acute Assessment and Plan: Postop day 1: Left total knee arthroplasty. Patient tolerated procedure well. No complications. Pain manageable with pain medication. No numbness or tingling. We had a lengthy discussion regarding postoperative wound care, limitations, expectations, and exercises. Patient shows good understanding. Patient has had initial physical therapy and is tolerating it well. DVT prophylaxis: 81 mg baby aspirin b.i.d. for 14 days. Pain medication: Percocet. Meloxicam. Patient has followup appointment with Dr. Farmer in 3 weeks. DS: Summary Hospital Course Reason for hospitalization: Total knee arthroplasty Hospital Course: Patient tolerated procedure well. Has had initial PT/OT. No complications. Pain well managed. Status at Discharge Functional status at discharge: uses cane/walker Overall status at discharge: patient is progressing back to baseline Time Spent with Patient Time attestation: Total time spent providing and/or coordinating discharge services: Exam Narrative: Overweight female. Resting comfortably in bed. No acute distress. A&O x3. Wearing compression socks bilaterally. Dressing intact with no drainage. Moderate swelling. Small area of ecchymosis. No erythema. No hematoma. Good early range of motion. Calf nontender. Neurologic status intact. No varicosities. Distal pulses palpable. DS: Data Data Completed and Pending Labs on day of discharge: Labs from last 24 hours 02/12/21 02/12/21 02/12/21 07:20 05:21 05:21 WBC 6.7 RBC 3.53 L Hgb 9.9 L Hct 31.2 L MCV 88.4 MCH 28.0 MCHC 31.7 L RDW 13.4 Plt Count 208 MPV 10.0 Immature Gran % (Auto) 0.4 Neut % (Auto) 76.9 H Lymph % (Auto) 12.4 L Frio % (Auto) 9.8 H Eos % (Auto) 0.4 Baso % (Auto) 0.1 L Lymph # (Auto) 0.83 L Frio # (Auto) 0.7 H Eos # (Auto) 0.0 Baso # (Auto) 0.0 Abs Immat Gran (auto) 0.03 Absolute Neuts (auto) 5.2 Absolute Nucleated RBC 0.0 Nucleated RBC % 0.0 Sodium 130 L Potassium 3.9 Chloride 98 Carbon Dioxide 25 Anion Gap 7 L BUN 14 Creatinine 0.80 Estim Creat Clear Calc 71 Estimated GFR > 60 Glucose 126 H POC Capillary Glucose 190 H Calcium 8.8 02/11/21 02/11/21 02/11/21 20:21 17:53 11:01 WBC RBC Hgb Hct MCV MCH MCHC RDW Plt Count MPV Immature Gran % (Auto) Neut % (Auto) Lymph % (Auto) Frio % (Auto) Eos % (Auto) Baso % (Auto) Lymph # (Auto) Frio # (Auto) Eos # (Auto) Baso # (Auto) Abs Immat Gran (auto) Absolute Neuts (auto) Absolute Nucleated RBC Nucleated RBC % Sodium Potassium Chloride Carbon Dioxide Anion Gap BUN Creatinine Estim Creat Clear Calc Estimated GFR Glucose POC Capillary Glucose 135 H 140 H 180 H Calcium Discharge Plan Discharge Patient Disposition: Home, Self-Care Discharge Instructions: See instruction sheet. Follow-up/Referrals: Bridget Bautista PA [Physician Medical Sales Associate] - Discharge Medications: New aspirin 81 mg tablet,delayed release (DR/EC) 81 mg PO BID 14 Days Qty: 28 RF: 0 oxycodone-acetaminophen 5-325 mg tablet 1 - 2 tablet PO Q4-6H MDD 6 PRN (Reason: pain) Qty: 30 RF: 0 Continued omeprazole 20 mg capsule,delayed release(DR/EC) 20 mg PO QAM RF: 0 Hold Instructions: Patient no longer taking cholecalciferol (vitamin D3) 50 mcg (2,000 unit) tablet 2,000 unit PO DAILY RF: 0 loratadine [Claritin] 10 mg tablet 10 mg PO HS RF: 0 meclizine [Medi-Meclizine] 25 mg tablet 25 mg PO TID PRN (Reason: dizziness) Qty: 20 RF: 0 Hold Instructions: Nessa
[2021-02-12 10:00] VITALS: BP 93/63; PULSE 102; RESP 14; TEMP 36.8; O2SAT 95
== END 2021-02-12 10:37 | disposition home or self-care (01) ==
LOC: ANHSURGERY 06:10 → ANH2MED 12:00
PROVIDERS: PCP Family Medicine; Visit Provider Orthopaedic Surgery
PROC: (CPT 27447; principal; 2021-02-11 08:00)
DX: M17.12 Unilateral primary osteoarthritis, left knee (principal); G89.18 Other acute postprocedural pain; I10 Essential (primary) hypertension; E78.2 Mixed hyperlipidemia; E11.9 Type 2 diabetes mellitus without complications; J45.20 Mild intermittent asthma, uncomplicated; I34.1 Nonrheumatic mitral (valve) prolapse; L94.8 Other specified localized connective tissue disorders; Z86.16 Personal history of COVID-19; Z79.84 Long term (current) use of oral hypoglycemic drugs; Z79.82 Long term (current) use of aspirin; Z79.51 Long term (current) use of inhaled steroids; E66.9 Obesity, unspecified; Z68.34 Body mass index [BMI] 34.0-34.9, adult
CPT/HCPCS: 27447; 64447; 36415; 73560; 80048; 80307; 82948; 85025; 86850; 86900; 86901; 87081; 94640; 97110; 97116; 97161; 97165; 97530; A9270; C1713; C1776; J0131; J0171; J0690; J1100; J1170; J1885; J2250; J2270; J2405; J2704; J2795; J3010; J7120

== ENCOUNTER 2021-04-21 09:30 | Outpatient (CLI) | payer MEDICARE, SELFPAY ==
--- NOTE | ~2021-04-21 | MM_ITS ---
EXAMINATION: MM screening [facility] BI w pierre HISTORY: Screening TECHNIQUE: Craniocaudal and mediolateral oblique 3-D tomosynthesis images were obtained and synthetic 2-D images were generated. CAD analysis was submitted and interpreted. COMPARISON: No prior mammogram is available for comparison at this institution. BREAST PARENCHYMAL COMPOSITION: There are scattered areas of fibroglandular density. FINDINGS: There is no evidence of suspicious mass, calcification, or architectural distortion to sugg est malignancy in either breast. There has been no suspicious interval change. IMPRESSION: 1. No mammographic evidence of malignancy. 2. Recommend routine screening mammography in one year. BI-RADS Category 1: Negative Reviewed, dictated and finalized at location A.
== END 2021-04-21 09:31 | disposition home or self-care (01) ==
LOC: ANHIMG 09:32
PROVIDERS: PCP Family Medicine; Visit Provider Family Medicine
DX: Z12.31 Encounter for screening mammogram for malignant neoplasm of breast (principal)
CPT/HCPCS: 77063; 77067

== ENCOUNTER → 2022-10-19 08:50 | Outpatient (CLI) | payer MEDICARE, SELFPAY ==
--- NOTE | ~2022-10-19 | XR_ITS ---
XR lumbar spine min 4V 10/19/2022 09:11 Indication: Low back pain Procedure: 5 views lumbar spine Comparison: No prior studies for comparison. Findings: Vertebral body heights are maintained. There is disc narrowing at all lumbar levels. There is moderate facet hypertrophy at L3-4 through L5-S1 with grade 1 degenerative spondylolisthesis at L4 -5. No acute fracture or traumatic malalignment. Pedicles intact. Sacral foramen are symmetric. Impression: 1: Moderate-severe lumbar spondylosis. Reviewed, dictated and finalized at location L. Impression: 1: Moderate-severe lumbar spondylosis.
== END ==
PROVIDERS: PCP Family Medicine; Visit Provider Family Medicine
DX: M47.816 Spondylosis without myelopathy or radiculopathy, lumbar region (principal); M54.42 Lumbago with sciatica, left side
CPT/HCPCS: 72110

== ENCOUNTER 2022-11-30 09:19 | Outpatient (CLI) | payer MEDICARE, SELFPAY ==
--- NOTE | 2022-12-21 14:39 | WPDHOMESLEEP ---
Sleep Study - Home Unattended Date of Study: 11/30/22 Ordering Provider: Ronald Church MD Interpreting Provider: Monserrat Rehman MD Home Sleep Study Type: Watch PAT Height: 1.68 m Weight: 101.605 kg Body Mass Index: 36.1 Neck Circumference (inches): 14.75 [place]: 8 Reason for Sleep Study Difficulty staying asleep Sleep History Lia Duran is a 67-year-old female with anemia asthma, aortic root dilation diabetes, depression, hypertension, mitral valve prolapse, hyperlipidemia, osteoarthritis and obesity that had a sleep study ordered by her primary care for evaluation of sleep apnea. The patient rarely awakens from sleep short of breath. She rarely awakens at night with heartburn, belching or cough. She occasionally snores and is occasionally loud enough that others complain. She occasionally has trouble sleeping when she has a cold. She denies waking up gasping for air throughout the night. He occasionally has breathing problems at night observed by herself or others. He denies sweating excessively at night. She denies having heart palpitations or irregular heartbeats during the night. He denies falling asleep during the day and while driving. She denies sleep paralysis, cataplexy and hypnagogic/hypnopompic hallucinations. She denies having trouble at school or work due to sleepiness. She denies feeling afraid of going to sleep. She denies. She occasionally remembers her dreams. She rarely has thoughts racing through her mind. She denies feeling sad, depressed or anxious. She denies having muscular tension. He denies noticing parts of her body jerk. She denies kicking during the night. She denies having crawling and aching feelings in legs. She occasionally has leg pain during the night. She denies grinding her teeth during sleep and denies awakening with morning pain. She is frequently bothered by pain during the day and awakened by pain during the night. She frequently wakes up feeling stiff morning. He occasionally wakes up with sore or achy muscles. She constantly wakes up pain in the neck, spine or other joints. He goes to bed at 10:00 p.m. on both weekdays and weekends. It takes her 15-20 minutes to fall asleep. She wakes up once throughout the night to urinate and is able fall back asleep within 10 minutes. She wakes up at 6:00 a.m. on weekdays and at 7:00 a.m. on the weekends. She typically gets 5-6 hours of sleep per night. She will stay in bed for 15 minutes after waking up in the morning. She currently lives with her . She will consume caffeinated beverages within 2 of bedtime. She does not engage in physical exercise before bedtime. She will read watch television before falling asleep. He will take naps in afternoon or the evening but they are not refreshing. She consumes 2 cups of caffeinated beverage per day. She denies tobacco, alcohol and recreational drug use. [facility] Past Medical History Medical History Acute non-recurrent maxillary sinusitis Allergy to bee sting Anemia hemoglobin 10.9 on 02/25/2021 with normal vitamin B12 and folic acid. Hemoglobin 11.5 with iron 75, 21% saturation and ferritin low at 10 on 04/28/2021. Hemoglobin 11.1 with iron 105 with 29% saturation and ferritin low at 11 with vitamin B12 318, folic acid 13.7 on 04/11/2022. Hemoglobin 11.1 on 10/03/2022. Hemoglobin 11.5 with vitamin B12 753, folic acid 16.2, iron 76 with 20% saturation and ferritin 7 on 09/29/2022. Aortic root dilation Followed by the production support developer BMI 35.0-35.9,adult BMI 36.0-36.9,adult BMI 37.0-37.9, adult Breast cancer screening by mammogram Normal mammogram 04/21/2021 Bronchitis Controlled diabetes mellitus with hyperglycemia glucose 165 with hemoglobin A1c 8.4 on 09/29/2022. Controlled type 2 diabetes mellitus without complication, without long-term current use of insulin (~02/2019) Most recent hemoglobin A1c was reportedly
[2022-12-21 14:44] VITALS: BMI 36.1
== END 2022-12-05 12:10 | disposition home or self-care (01) ==
LOC: ANHCSM 09:20
PROVIDERS: PCP Family Medicine; Visit Provider Family Medicine
DX: G47.33 Obstructive sleep apnea (adult) (pediatric) (principal); D64.9 Anemia, unspecified; J45.909 Unspecified asthma, uncomplicated; E11.8 Type 2 diabetes mellitus with unspecified complications; Z79.84 Long term (current) use of oral hypoglycemic drugs; I34.1 Nonrheumatic mitral (valve) prolapse; E78.5 Hyperlipidemia, unspecified; E66.9 Obesity, unspecified; Z68.36 Body mass index [BMI] 36.0-36.9, adult
CPT/HCPCS: 95800

== ENCOUNTER 2023-06-22 09:44 | Outpatient (CLI) | payer MEDICARE, SELFPAY ==
--- NOTE | 2023-07-16 16:50 | WPDSLEEPSTUD ---
Sleep Study Date of Study: 06/22/23 Ordering Provider: Liana Jaquez DO Interpreting Physician: Monserrat Rehman MD Sleep Study Type: BiPAP Titration Height: 1.68 m Weight: 104.326 kg Body Mass Index: 37.1 Neck Circumference (inches): 13 [place]: 8 Reason for Sleep Study history of difficulty staying asleep * home sleep test using WatchPat on 11/30/2022 shows moderate obstructive sleep apnea, an overall apnea-hypopnea index of 28.1 with desaturation 82%.? Sleep History Lia Duran is a 68-year-old female with anemia asthma, aortic root dilation diabetes, depression, hypertension, mitral valve prolapse, hyperlipidemia, osteoarthritis and obesity that had a sleep study ordered by her primary care for evaluation of sleep apnea.? The patient rarely awakens from sleep short of breath.? She rarely awakens at night with heartburn, belching or cough.? She occasionally snores and is occasionally loud enough that others complain.? She occasionally has trouble sleeping when she has a cold.? She denies waking up gasping for air throughout the night.? He occasionally has breathing problems at night observed by herself or others.? He denies sweating excessively at night.? She denies having heart palpitations or irregular heartbeats during the night.? He denies falling asleep during the day and while driving.? She denies sleep paralysis, cataplexy and hypnagogic/hypnopompic hallucinations.? She denies having trouble at school or work due to sleepiness.? She denies feeling afraid of going to sleep.? She denies.? She occasionally remembers her dreams.? She rarely has thoughts racing through her mind.? She denies feeling sad, depressed or anxious.? She denies having muscular tension.? He denies noticing parts of her body jerk.? She denies kicking during the night.? She denies having crawling and aching feelings in legs.? She occasionally has leg pain during the night.? She denies grinding her teeth during sleep and denies awakening with morning pain.? She is frequently bothered by pain during the day and awakened by pain during the night.? She frequently wakes up feeling stiff morning.? He occasionally wakes up with sore or achy muscles.? She constantly wakes up pain in the neck, spine or other joints.? He goes to bed at 10:00 p.m. on both weekdays and weekends.? It takes her 15-20 minutes to fall asleep.? She wakes up once throughout the night to urinate and is able fall back asleep within 10 minutes.? She wakes up at 6:00 a.m. on weekdays and at 7:00 a.m. on the weekends.? She typically gets 5-6 hours of sleep per night.? She will stay in bed for 15 minutes after waking up in the morning.? She currently lives with her .? She will consume caffeinated beverages within 2 of bedtime.? She does not engage in physical exercise before bedtime.? She will read watch television before falling asleep.? He will take naps in afternoon or the evening but they are not refreshing.? She consumes 2 cups of caffeinated beverage per day.? She denies tobacco, alcohol and recreational drug use. [facility] Past Medical History Medical History Acute non-recurrent maxillary sinusitis Allergy to bee sting Anemia hemoglobin 10.9 on 02/25/2021 with normal vitamin B12 and folic acid. Hemoglobin 11.5 with iron 75, 21% saturation and ferritin low at 10 on 04/28/2021. Hemoglobin 11.1 with iron 105 with 29% saturation and ferritin low at 11 with vitamin B12 318, folic acid 13.7 on 04/11/2022. Hemoglobin 11.1 on 10/03/2022. Hemoglobin 11.5 with vitamin B12 753, folic acid 16.2, iron 76 with 20% saturation and ferritin 7 on 09/29/2022. hemoglobin 10.9, iron 65 with 16% saturation and ferritin 8 on 03/15/2023. Aortic root dilation Followed by the ton cylinder inspector At low risk for fall Benign positional vertigo BMI 35.0-35.9,adult BMI 36.0-36.9,adult BMI 37.0-37.9, adult Breast cancer screening by mammogram Normal mammogram 04/21/2021 [place]
[2023-07-16 17:46] VITALS: BMI 37.1
--- NOTE | 2023-07-20 11:06 | SLEEP ---
PT WAS NOTIFIED OF RESULTS GOING TO PHYSICIAN'S OFFICE AND TO [facility]. SUGGESTION MADE TO PATIENT THAT IF SHE NEEDS ANY HELP ONCE SHE RECEIVES MACHINE, TO NOT HESITATE TO CALL US. MINERVA @ DR MOSQUERA OFFICE NOTIFIED OF PT'S DME CHOICE.
== END 2023-06-23 06:41 | disposition home or self-care (01) ==
PROVIDERS: PCP Family Medicine; Visit Provider Family Medicine
DX: G47.33 Obstructive sleep apnea (adult) (pediatric) (principal)
CPT/HCPCS: 95811

== ENCOUNTER 2024-01-18 07:58 | Outpatient (CLI) | payer MEDICARE, SELFPAY ==
--- NOTE | ~2024-01-18 | XR_ITS ---
Left Hand Technique: PA, oblique, and lateral views were obtained. Clinical History: Carpal tunnel syndrome Findings: No acute fracture or dislocation is seen. Osseous alignment is anatomic. Joint spaces are p reserved. Soft tissues are unremarkable. Impression: Unremarkable left hand. Reviewed, dictated and finalized at location . Impression: Unremarkable left hand.
--- NOTE | ~2024-01-18 | XR_ITS ---
Right Hand Technique: PA, oblique, and lateral views were obtained. Clinical History: Carpal tunnel syndrome Findings: No acute fracture or dislocation is seen. There are mild scattered degenerative changes, mo st notably at the third MCP joint and interphalangeal joints of the fingers. Soft tissues are unremar kable. Impression: Mild scattered degenerative changes, as above. Reviewed, dictated and finalized at location . Impression: Mild scattered degenerative changes, as above.
== END 2024-01-18 07:59 | disposition home or self-care (01) ==
PROVIDERS: PCP Family Medicine; Visit Provider Orthopaedic Surgery
DX: G56.03 Carpal tunnel syndrome, bilateral upper limbs (principal); M19.041 Primary osteoarthritis, right hand
CPT/HCPCS: 73130

== ENCOUNTER 2024-06-03 07:21 | Outpatient (CLI) | payer MEDICARE, SELFPAY ==
--- NOTE | ~2024-06-03 | MM_ITS ---
EXAMINATION: MM screening [facility] BI w pierre HISTORY: Screening TECHNIQUE: Craniocaudal and mediolateral oblique 3-D tomosynthesis images were obtained and synthetic 2-D images were generated. CAD analysis was submitted and interpreted. COMPARISON: Comparison to multiple prior studies sequentially, with oldest reviewed study dated 04/08. BREAST PARENCHYMAL COMPOSITION: Not Dense: The breasts are almost entirely fatty. FINDINGS: There is no evidence of suspicious mass, calcification, or architectural distortion to sugg est malignancy in either breast. There has been no suspicious interval change. IMPRESSION: 1. No mammographic evidence of malignancy. 2. Recommend routine screening mammography in one year. BI-RADS Category 1: Negative Reviewed, dictated and finalized at location B. [employer]
== END 2024-06-03 07:22 | disposition home or self-care (01) ==
LOC: ANHIMG 07:22
PROVIDERS: PCP Family Medicine; Visit Provider Family Medicine
DX: Z12.31 Encounter for screening mammogram for malignant neoplasm of breast (principal)
CPT/HCPCS: 77063; 77067